=== PATIENT | male | born 1935 | race Caucasian/White ===

== ENCOUNTER → 2017-12-23 | Outpatient (CLI) | payer MEDICARE ==
[~2017-12-23] MED LIST: AMBIEN 10 MG TA10 MG PO; ASPIRIN EC81 M1 PO; ASPIRIN325 PO; AUGMENTIN 875875 M1; BENICAR HCT 201 EACH PO; BENICAR HCT 401 EACH PO; BENICAR20 MG; BENTYL 10 MG CA10 MG PO; BISACODYL10 MG RC; CELEBREX 200 M200 M1 PO; CELEBREX 200 M200 MG PO; CIPRO250 M1 PO; COLACE100 MG PO; FIBER0.52 GM PO; FLAGYL500 MG PO; HYDROCODONE-AP1 EAC6 PO; LISINOPRIL-HCT1 EAC1 PO; LYRICA 50 MG50 MG PO; MAG-OX 400 TAB400 M1 PO; MAGNESIUM OXIDE PO; MOBIC7.5 M1 PO; NORCO 10-325 T1 EACH PO; NORVASC 5 MG TAB5 MG PO; OXYCODONE HCL5 M1 PO; OXYCONTIN10 M1 PO; PRILOSEC 20 MG20 MG PO; TRAMADOL 50 MG50 MG PO; ULTRAM 50MG TAB50 MG PO; VICODIN ES TAB1 EACH; XARELTO10 MG PO; ZANAFLEX4 MG PO; ZANTAC 150MG T150 MG PO; ZESTRIL20 MG PO; [UNRECOGNIZED DRUG - OTHER]
== END ==
LOC: M.MRI 07:58
DX: G45.8 Other transient cerebral ischemic attacks and related syndromes (principal); H53.8 Other visual disturbances; I10 Essential (primary) hypertension; M81.0 Age-related osteoporosis without current pathological fracture